=== PATIENT | male | born 1990 | race Caucasian/White ===

== ENCOUNTER 2018-10-22 11:32 | Emergency (ER) | payer BC, MEDICAID ==
[2018-10-22] MEDS ORDERED: Albuterol/Ipratropium 3.0-0.5 MG/3 ML Neb Soln NEB ONE (11:52)
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
[2018-10-22] MEDS ORDERED: Albuterol 6.7 GM Inhaler INH PRN (12:07)
--- NOTE | 2018-10-22 13:23 | CR ---
Chest: Portable view of the chest was obtained. Comparison: No prior chest x-ray. Heart size and mediastinum are normal. Lungs are clear. Bony structures are grossly intact. Impression: 1. Nothing acute is seen on portable chest x-ray. Diagnostic code #2
== END 2018-10-22 12:45 | disposition home or self-care (01) ==
LOC: JD.ED 11:32
DX: J70.5 Respiratory conditions due to smoke inhalation (principal)
CPT/HCPCS: 71045; 94640; 99284; A9270; 99283; J7620-GY